=== PATIENT | female | born 1985 | race Two or more races ===

== ENCOUNTER 2017-03-26 13:40 | Observation (INO) | payer OTHER ==
[~2017-03-26] VITALS: Ht 154.9 cm; Wt 102.1 kg
[2017-03-26 14:54] LABS: Basophils # (auto) 0.1 uL; Basophils % (auto) 0.6 % (0.0-2.0); Eosinophils # (auto) 0.4 uL; Eosinophils % (auto) 4.6 % (0.0-7.0); Hemoglobin 12.4 g/dL (12.2-16.2); Lymphocytes # (auto) 2.8 uL; Lymphocytes % (auto) 29.7 % (10.0-50.0); Mean Corpuscular Hemoglobin 28.5 pg (28.0-32.0); Mean Corpuscular Hgb Conc. 32.7 g/dL (32.0-36.0); Monocytes # (auto) 0.5 uL; Monocytes % (auto) 5.1 % (0.0-12.0); Neutrophils # (auto) 5.7 uL; Platelet Count (auto) 303 10^3/uL (140-450); Red Cell Distribution Width 13.6 % (11.8-14.3); White Blood Cell 9.5 10^3/uL (4.4-10.8)
[2017-03-26 15:09] LABS: INR 0.93 (0.9-1.15); Partial Thromboplastin Time 30.2 sec (22.64-33.71); Prothrombin Time 10.1 sec (9.37-12.3)
[2017-03-26 15:18] LABS: Albumin 3.8 g/dL (3.4-5.0); BUN/Creatinine Ratio 18.6; Bilirubin, Total 0.2 mg/dL (0.2-1.0); Potassium 4.2 mmol/L (3.5-5.1); Total Protein 8.4 g/dL (6.4-8.2)
[2017-03-26] MEDS ORDERED: LIDOCAINE 1% HCL (LOCAL ANESTH.) INJ 20ML MDV ID ONE (18:00)
[2017-03-26] MEDS ORDERED: cefTRIAXone 1GM/10ml IVPUSH 10 ML IV ONE (19:00)
[2017-03-26 19:34] VITALS: BP 147/69
[2017-03-26] MEDS ORDERED: SODIUM CHLOR 0.9% PF (SALINE LOCK) 10ML VIAL IV SCH (22:00)
== END 2017-03-26 19:35 | disposition home or self-care (01) | DRG 950 ==
LOC: ER 13:40 → OVERFLOW 14:26 → ER 19:35
PROVIDERS: ADMIT Family Medicine; ATTEND Family Medicine
DX: Z45.2 Encounter for adjustment and management of vascular access device (principal); H66.12 Chronic tubotympanic suppurative otitis media, left ear; H66.3X2 Other chronic suppurative otitis media, left ear; Z82.49 Family history of ischemic heart disease and other diseases of the circulatory system
CPT/HCPCS: 36415; 36569; 71010; 80053; 85025; 85610; 85730; 96374; 99285; C1751; G0378; J7050